=== PATIENT | female | born 1925 | race Caucasian/White ===

== ENCOUNTER → 2016-08-03 | Outpatient (CLI) | payer MEDICARE ==
[2015-10-16 22:45] VITALS: BP 130/90
[~2016-08-03] MED LIST: ALPR0.254 PO; APIX2.5T PO; ASCO500T PO; CEFP200T PO; DIGO125T PO; FERR-26 PO; FURO-68 PO; LEVO100T5 PO; LEVO500T59 PO; METO50TA2 PO; OMEP20CA9 PO; OXYC5CAP PO; POTA10CA PO; SIMV40TA3 PO
--- NOTE | 2016-08-03 14:52 | RAD ---
DATE: 08/03/16 EXAM: MAMMO [facility] DIAG LT HISTORY: History of right breast cancer, status post mastectomy COMPARISON: 08/02/15 This study was interpreted with the benefit of Computerized Aided Detection (CAD). TECHNIQUE: 2-D and 3-D CC and MLO views of the left breast is obtained FINDINGS: Breast Density: HETERO The breast parenchyma is heterogeneously dense, which could reduce sensitivity of mammography. Breast parenchyma level C.. Scattered benign calcifications are seen in the left breast. IMPRESSION: Benign findings BI-RADS CATEGORY: 2 BENIGN FINDING(S) RECOMMENDED FOLLOW-UP: 12M 12 MONTH FOLLOW-UP PQRS compliance statement: Patient information was entered into a reminder system with a target due date for the next mammogram. Mammography is a sensitive method for finding small breast cancers, but it does not detect them all and is not a substitute for careful clinical examination. A negative mammogram does not negate a clinically suspicious finding and should not result in delay in biopsying a clinically suspicious abnormality. "Our facility is accredited by the [employer] Mammography Program."
== END | disposition home or self-care (01) ==
LOC: MAMMO 12:50
PROVIDERS: ATTEND Internal Medicine Hematology & Oncology
DX: C50.111 Malignant neoplasm of central portion of right female breast (principal); I74.8 Embolism and thrombosis of other arteries; Z85.3 Personal history of malignant neoplasm of breast; Z90.11 Acquired absence of right breast and nipple
CPT/HCPCS: G0206; G0279; 77061; 77065